=== PATIENT | female | born 1970 | race Caucasian/White ===

== ENCOUNTER 2023-03-26 08:27 | Day surgery (SDC) | payer BC, MEDICARE ==
[2023-03-25 12:25] VITALS: BMI 34.7
[2023-03-26] MEDS ORDERED: Oxymetazoline HCl 0.05% (30 ML BOT) ONE (10:00)
[2023-03-26] MEDS ORDERED: fentaNYL PF 100 MCG/2 ML SYRINGE ONE (10:14)
[2023-03-26] MEDS ORDERED: PROPOFOL 20 ML ONE (10:14)
[2023-03-26] MEDS ORDERED: Rocuronium Bromide 10 MG/ML (10ML VIAL) ONE ×2 (10:16→10:50)
[2023-03-26] MEDS ORDERED: Lidocaine 1% PF 5 ML VIAL ONE ×2 (10:16→10:50)
[2023-03-26] MEDS ORDERED: EPINEPHrine 1 MG/ML VIAL ONE (10:19)
[2023-03-26] MEDS ORDERED: Lidocaine 1% (PF) 30 ML VIAL ONE (10:20)
[2023-03-26] MEDS ORDERED: Bacitracin Zinc Ointment 30 gm TUBE ONE (10:20)
[2023-03-26 10:26] LABS: Hematocrit 43.3 % (36.0-47.0)
[2023-03-26] MEDS ORDERED: Dexamethasone 20 MG/5 ML VIAL ONE (10:50)
[2023-03-26] MEDS ORDERED: Ondansetron PF 4 MG/2 ML Vial ONE ×2 (10:50→12:40)
[2023-03-26] MEDS ORDERED: PROPOFOL 200 MG/20 ML VIAL ONE (10:50)
[2023-03-26] MEDS ORDERED: MINERAL OIL/WHITE PETROLATUM 3.5 GM TUBE ONE (11:03)
[2023-03-26] MEDS ORDERED: SUGAMMADEX SODIUM 200 MG/2 ML VIAL ONE (11:34)
[2023-03-26] MEDS ORDERED: fentaNYL 50 mcg/mL 1 mL Vial ONE ×2 (12:10→12:41)
[2023-03-26] MEDS ORDERED: HYDROmorphone 0.5 MG/0.5 ML SYRINGE ONE (13:04)
[2023-03-26] MEDS ORDERED: HYDROcodone/Acetaminophen 5/325 mg Tablet ONE (13:43)
[2023-03-26] MEDS ORDERED: Morphine 2 MG/ML VIAL ONE (13:44)
== END 2023-03-26 14:42 | disposition home or self-care (01) ==
LOC: SDC 08:27
PROVIDERS: ATTEND Otolaryngology Plastic Surgery within the Head & Neck
PROC: 09BU8ZZ Excision of Right Ethmoid Sinus, Via Natural or Artificial Opening Endoscopic (ICD-10-PCS; principal; 2023-03-26)
PROC: 09BS8ZZ Excision of Right Frontal Sinus, Via Natural or Artificial Opening Endoscopic (ICD-10-PCS; principal; 2023-03-26)
PROC: 09BT8ZZ Excision of Left Frontal Sinus, Via Natural or Artificial Opening Endoscopic (ICD-10-PCS; principal; 2023-03-26)
PROC: 09BR8ZZ Excision of Left Maxillary Sinus, Via Natural or Artificial Opening Endoscopic (ICD-10-PCS; principal; 2023-03-26)
PROC: 09BX8ZZ Excision of Left Sphenoid Sinus, Via Natural or Artificial Opening Endoscopic (ICD-10-PCS; principal; 2023-03-26)
PROC: 09BQ8ZZ Excision of Right Maxillary Sinus, Via Natural or Artificial Opening Endoscopic (ICD-10-PCS; principal; 2023-03-26)
PROC: 09BM0ZZ Excision of Nasal Septum, Open Approach (ICD-10-PCS; principal; 2023-03-26)
PROC: 09BL8ZZ Excision of Nasal Turbinate, Via Natural or Artificial Opening Endoscopic (ICD-10-PCS; principal; 2023-03-26)
PROC: 09BW8ZZ Excision of Right Sphenoid Sinus, Via Natural or Artificial Opening Endoscopic (ICD-10-PCS; principal; 2023-03-26)
PROC: 09BV8ZZ Excision of Left Ethmoid Sinus, Via Natural or Artificial Opening Endoscopic (ICD-10-PCS; principal; 2023-03-26)
DX: J34.2 Deviated nasal septum (principal); J34.3 Hypertrophy of nasal turbinates; J32.4 Chronic pansinusitis; J34.9 Unspecified disorder of nose and nasal sinuses; J30.81 Allergic rhinitis due to animal (cat) (dog) hair and dander; J30.1 Allergic rhinitis due to pollen; I10 Essential (primary) hypertension; E78.00 Pure hypercholesterolemia, unspecified; Z79.899 Other long term (current) drug therapy
CPT/HCPCS: 85014; 93005; 93010; J0171; J1100; J1170; J2001; J2272; J2405; J2704; J3010